=== PATIENT | female | born 1985 | race American Indian/Alaskan Native ===

== ENCOUNTER 2020-07-07 15:48 | Outpatient (CLI) | payer BC, MEDICAID ==
[2020-07-07 17:00] VITALS: BP 120/70
[2020-07-07 18:30] LABS: Hemoglobin 11.5 gm/dl (10.1-14.3); Mean Corpuscular HGB Conc 34 % (30-34); Mean Corpuscular Volume 90 fl (79-97); Platelet Count 140 K/mm3 (140-440); Red Blood Count 3.79 M/mm3 (3.65-5.03); Red Cell Distribution Width 14.1 % (13.2-15.2)
== END 2020-07-07 20:40 | disposition home or self-care (01) ==
LOC: TRG 15:48 → APU 15:54 → TRG 20:40
PROVIDERS: ATTEND Obstetrics & Gynecology
DX: O09.893 Supervision of other high risk pregnancies, third trimester (principal); Z3A.38 38 weeks gestation of pregnancy
CPT/HCPCS: 36415; 59025; 83036; 85027

== ENCOUNTER 2020-07-14 01:33 | Inpatient (IN) | payer BC, MEDICAID ==
[2020-07-14] MEDS ORDERED: LACTATED RINGERS 1,000 ML IV SCH ×2 (02:00→02:30)
[2020-07-14] MEDS ORDERED: MINERAL OIL 30 ML ORAL LIQD PO PRN (02:20)
[2020-07-14] MEDS ORDERED: TERBUTALINE 1 MG/1 ML INJ SUB-Q PRN (02:20)
[2020-07-14] MEDS ORDERED: LIDOCAINE (2%) 20 MG/1 ML VIAL 20 ML MDV INFILTRATI ONE (02:20)
[2020-07-14] MEDS ORDERED: fentaNYL 100 MCG/2 ML INJ IV PRN (02:20)
[2020-07-14] MEDS ORDERED: ONDANSETRON 4 MG/2 ML INJ IV PRN (02:20)
[2020-07-14] MEDS ORDERED: DESMOPRESSIN ACETATE 0.3 MCG in SODIUM CHLORIDE 0.9% 50 ML IV ONE (02:20)
[2020-07-14] MEDS ORDERED: PROMETHAZINE 25 MG TAB PO PRN (02:20)
[2020-07-14] MEDS ORDERED: NALOXONE 0.4 MG/1 ML INJ IV PRN (02:20)
[2020-07-14] MEDS ORDERED: ePHEDrine SULFATE 50 MG/1 ML INJ IV PRN ×2 (02:20→05:15)
[2020-07-14] MEDS ORDERED: ACETAMINOPHEN 500 MG TAB PO PRN (02:31)
[2020-07-14] MEDS ORDERED: DESMOPRESSIN ACETATE IV ONE (02:37)
[2020-07-14] MEDS ORDERED: SODIUM CHLORIDE 0.9% IV ONE (02:37)
[2020-07-14] MEDS ORDERED: OXYTOCIN DRIP 30 UNITS/500 ML BAG IV SCH ×2 (03:00)
[2020-07-14 03:08] LABS: Hematocrit 32.7 % (30.3-42.9); Mean Corpuscular HGB Conc 34 % (30-34); Mean Corpuscular Volume 88 fl (79-97); Platelet Count 138 K/mm3 (140-440); Red Cell Distribution Width 14.3 % (13.2-15.2)
[2020-07-14 03:22] LABS: Bacteria,Urine 1+ /HPF (Negative); Bilirubin,Urine NEG (Negative); Blood,Urine MOD (Negative); Color,Urine Yellow (Yellow); Protein,Urine <15 mg/dL mg/dL (Negative)
--- NOTE | 2020-07-14 03:24 | History and Physical Report ---
History of Present Illness Date of examination: 07/14/20 (Contractions) Date of admission: 07/14/2020 Chief complaint: My contractions are becoming closer together and more painful. History of present illness: contractions that started yesterday and have become stronger. EDC Confirmation: 07/19/2020 Gestational Age: 39.2 wks on admission Past History # 1 Delivery date: 2002 Weeks Gestation: term labor: no Delivery type: Hours of labor: 4 Anesthesia type: none Sex: Female weight: 7#4 Name: Jose Comments: received DDAVP 30 minutes prior to delivery Risk Factors: Smoked Tobacco Use: Never smoker Smokeless Tobacco Use: Never Drug use: no HIV high-risk behavior: no Alcohol use: no Exercise: no Seatbelt use: 100 % Past Medical History: Abnormal Pap Smear Von willebrands dx Past Medical History Abnormal PAP: negative Family Hx: htn - father DVT - mother non-hodgkins lymphoma - maternal aunt Social Hx: no ETOH/Drugs/smoking Trauma Nurse at [place] Infection History Hx of STD: none HIV Risk Eval: no Hepatitis B Risk Eval: low risk Personal hx. of genital herpes: no Partner hx. of genital herpes: no Rash, Viral, or Febrile illness since last LMP? no Genetic History ADVANCED MATERNAL AGE Congenital Heart Defect: Mom: no Dad: no Monserrat Disease: Mom: no Dad: no Thalassemia Mom: no Dad: no Neural Tube Defect Mom: no Dad: no Down's Syndrome Mom: no Dad: no Sohail-Sachs Mom: no Dad: no Sickle Cell Disease/Trait Mom: no Dad: no Hemophilia Mom: no Dad: no Muscular Dystrophy Mom: no Dad: no Cystic Fibrosis Mom: no Dad: no [place] Chorea Mom: no Dad: no Mental Retardation Mom: no Dad: no Fragile X Mom: no Dad: no Other Genetic/Chromosomal Disorder Mom: no Dad: no Child w/other defect Mom: no Dad: no Other: Von Willebrands Enviromental Exposures Xray Exposure: no Medication, drug, or alcohol use since LMP: no Chemical/Other Exposure: no Exposure to Cat Liter: no Hx of Parvovirus (Fifth Disease): no Occupational Exposure to Children: none Current Allergies (reviewed today): No known allergies Past History Past Medical History: hematologic disorders (Von Willebrand disease) Past Surgical History: 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 Family/Genetic History: hypertension, cancer, other (DVT) Social history: no significant social history - Obstetrical History Expected Date of Delivery: 07/19/20 Actual Gestation: 39 Week(s) 2 Day(s) : 4 Para: 1 Hx # Term Pregnancies: 1 Number of Pregnancies: 0 Spontaneous Abortions: 2 Induced : 0 Number of Living Children: 1 Medications and Allergies Allergies Allergy/AdvReac Type Severity Reaction Status Date / Time No Known Allergies Allergy Verified 07/07/20 17:01 Home Medications Medication Instructions Recorded Confirmed Last Taken Type 147/Iron/Folic Acid 1 mg PO DAILY 07/14/20 07/14/20 07/13/20 08:00 History Active Meds: Active Medications Acetaminophen (Acetaminophen 500 Mg Tab) 1,000 mg PO Q6H PRN PRN Reason: Pain, Mild (1-3) Ephedrine Sulfate (Ephedrine Sulfate 50 Mg/1 Ml Inj) 10 mg IV Q2M PRN PRN Reason: Hypotension Fentanyl (Fentanyl 100 Mcg/2 Ml Inj) 100 mcg IV Q2H PRN PRN Reason: Pain,Severe (7-10) LABOR PAIN Oxytocin/Sodium Chloride (Pitocin/Ns 30 Unit/500ml) 30 units in 500 mls @ 2 mls/hr IV TITR MARTHA; Protocol Lactated Ringer's (Lactated Ringers) 1,000 mls @ 125 mls/hr IV DIRECT MARTHA Oxytocin/Sodium Chloride (Pitocin/Ns 30 Unit/500ml) 30 units in 500 mls @ 40 mls/hr IV TITR MARTHA; Protocol Mineral Oil (Mineral Oil 30 Ml Oral Liqd) 30 ml PO QHS PRN PRN Reason: Constipation Naloxone HCl (Naloxone 0.4 Mg/1 Ml Inj) 0.1 mg IV Q2MIN PRN PRN Reason: Res Rate </= 8 or 02 SAT < 92% Ondansetron HCl (Ondansetron 4 Mg/2 Ml Inj) 4 mg IV Q8H PRN PRN Reason: Nausea And Vomiting Promethazine HCl (Promethazine 25 Mg Tab) 25 mg PO Q6H PRN PRN Reason: Nausea And Vomiting Terbutaline Sulfate (Terbutaline 1 Mg/1 Ml Inj) 0.25 mg SUB-Q ONCE PRN PRN Reason: Hyperstimulation/Hypertonicity Review of Systems All systems: negative - Vital Signs Vital signs: Vital Signs Temp Pulse Resp BP Pulse Ox 98.2 F 85 18 129/73 98 07/14/20 02:05 07/14/20 02:05 07/14/20 02:05 07/14/20 02:05 07/14/20 02:05 Temp Pulse Resp BP Pulse Ox 98.2 F 85 18 129/73 98 07/14/20 02:05 07/14/20 02:06 07/14/20 02:05 07/14/20 02:06 07/14/20 02:05 - Physical Exam Breasts: Positive: deferred Cardiovascular: Regular rate Lungs: Positive: Normal air movement Abdomen: Positive: normal appearance, soft Genitourinary (Female): Positive: normal external genitalia, normal perenium, other (Hx of HSV 2) Vulva: both: normal Vagina: Positive: normal moisture Uterus: Positive: normal contour Extremities: Positive: normal - Obstetrical FHR: category 1 Uterine Contraction Monitor Mode: External Cervical Dilatation: 5 Cervical Effacement Percentage: 80 (Intact) station: -3 Uterine Contraction Pattern: Irregular Uterine Tone Measurement Phase: Resting Uterine Contraction Intensity: Moderate Results Result Diagrams: 07/14/20 02:30 Abnormal lab results 07/14/20 Range/Units 02:30 Plt Count 138 L (140-440) K/mm3 All other labs normal. GBS NEGATIVE, O +, ANTIBODY SCREEN NEGATIVE RUBELLA IMMUNE RPR NR HEP B NEGATIVE HIV NEGATIVE Assessment and Plan - Patient Problems (1) HSV-2 infection Current Visit: Yes Status: Acute Plan to address problem: Has been on Valtrex since 35 weeks. No lesions seen on exam this admission. (2) Von Willebrand disease Current Visit: Yes Status: Acute Plan to address problem: DDAVP IV, 0.3mcg/kg, ordered and to be given before procedures (epidural placement and ). Per hematology recommendation (seen as outpatient): 1.DDAVP can be repeated once in 24 hours if any bleeding. 2. May consider infusion if excessive bleeding is noted. No FSE to be placed while in labor. Make pediatric team aware of after delivery (Peds team aware of pt admission: ANGEL Aguirre). (3) with 39 completed weeks gestation Current Visit: Yes Status: Acute Plan to address problem: Admit to labor and delivery. Initiate IV and obtain admission labs. IV bolus for epidural placement.
--- NOTE | 2020-07-14 04:33 | Event Note ---
Date: 07/14/20 (SROM clear fluid, variables) SROM clear fluid at 0412 am. Contractions every minute with variable decelerations down into the 70's. heart rate recovers to 140's. Pt given dose of terb and repositioned in bed. Cervical exam 5.5/80/-2. Dr. Brooks made aware of change in patient condition.
[2020-07-14] MEDS ORDERED: NALOXONE 2 MG/2 ML INJ IV PRN (05:15)
--- NOTE | 2020-07-14 05:17 | Anesthesia Consultation ---
Anesthesia Consult and Med Hx Date of service: 07/14/20 - Airway Anesthetic Teeth Evaluation: Good ROM Head & Neck: Adequate Mental/Hyoid Distance: Adequate Mallampati Class: Class II Intubation Access Assessment: Probably Good - Pulmonary Exam CTA: Yes - Cardiac Exam Cardiac Exam: RRR - Pre-Operative Health Status ASA Pre-Surgery Classification: ASA3 Proposed Anesthetic Plan: Epidural (VWF I) - Pulmonary Hx Asthma: No COPD: No Hx Pneumonia: No - Cardiovascular System Hx Hypertension: No - Central Nervous System Hx Seizures: No Hx Psychiatric Problems: No - Endocrine Hx Renal Disease: No Hx End Stage Renal Disease: No Hx Hypothyroidism: No Hx Hyperthyroidism: No - Hematic Hx Anemia: Yes Hx Sickle Cell Disease: No - Other Systems Hx Alcohol Use: No
--- NOTE | 2020-07-14 05:38 | Progress Note ---
Labor Epidural - Labor Epidural Start Time: 05:27 Stop Time: 05:31 Performed by:: ADRIANNA ALONSO Procedure: Patient is requesting epidural for labor pain. H&P, and labs reviewed. Procedure explained, questions answered, consent obtained. Patient in sitting position with blood pressure cuff and pulse ox on and working. Timeout performed immediately before start of procedure. Sterile chlorahexadine 0.5% prep/drape. 3 mL 1% lidocaine skin wheal at L[3]-L[4]. 18-gauge Tuohy epidural needle advanced to [id number] with saline at 8 cm. Epidural dexmedetomidine [30] mcg administered. Epidural catheter advanced to 13 cm, negative aspiration for blood and csf, negative test dose 3 ml 1.5% lidocaine with epinephrine. Sterile steri-strips and tegaderm applied, followed by tape reinforcement. Patient tolerated procedure well.
--- NOTE | 2020-07-14 05:51 | Progress Note ---
Assessment and Plan A: 35 y.o. @ 39.2 wks in active labor. S/p DDAVP infusion. Epidural placed. feeling rectal pressure, cervical exam /-1. P: Continue with expected management of labor. Anticipate . - Patient Problems (1) HSV-2 infection Current Visit: Yes Status: Acute (2) Von Willebrand disease Current Visit: Yes Status: Acute (3) with 39 completed weeks gestation Current Visit: Yes Status: Acute Subjective - Subjective Date of service: 07/14/20 (Pt states that she is feeling pressure) Principal diagnosis: IUP @ 39.2 wks, active labor. Hx of Von Willebrand disease. Patient reports: movement normal, other (Feeling rectal pressure) Objective - Vital Signs Vital Signs: Vital Signs - 12hr 07/14/20 07/14/20 07/14/20 02:05 02:06 04:03 Temperature 98.2 F Pulse Rate 85 85 Respiratory 18 20 Rate Blood Pressure 129/73 Blood Pressure 129/73 [Left] O2 Sat by Pulse 98 Oximetry 07/14/20 07/14/20 07/14/20 05:23 05:26 05:27 Temperature Pulse Rate 99 H 100 H 98 H Respiratory Rate Blood Pressure 160/72 149/65 Blood Pressure [Left] O2 Sat by Pulse 98 Oximetry 07/14/20 07/14/20 07/14/20 05:28 05:29 05:31 Temperature Pulse Rate 106 H 97 H 112 H Respiratory Rate Blood Pressure 137/75 138/70 Blood Pressure [Left] O2 Sat by Pulse 98 Oximetry 07/14/20 07/14/20 07/14/20 05:33 05:35 05:37 Temperature Pulse Rate 113 H 108 H 108 H Respiratory Rate Blood Pressure 136/71 135/58 142/66 Blood Pressure [Left] O2 Sat by Pulse 99 Oximetry 07/14/20 07/14/20 07/14/20 05:38 05:39 05:41 Temperature Pulse Rate 101 H 113 H 96 H Respiratory Rate Blood Pressure 134/61 120/59 Blood Pressure [Left] O2 Sat by Pulse 99 Oximetry 07/14/20 05:43 Temperature Pulse Rate 100 H Respiratory Rate Blood Pressure 122/56 Blood Pressure [Left] O2 Sat by Pulse 99 Oximetry - Exam Narrative Exam: Epidural placement completed. Pt is now comfortable with epidural. Abdomen: Present: normal appearance Vulva: both: normal FHR: category 2 (Minimal variability noted. ) Cervical Dilatation: 8 Cervical Effacement Percentage: 90 station: -1 Uterine Contraction Pattern: Regular Uterine Tone Measurement Phase: Resting Uterine Contraction Intensity: Moderate - Labs Labs: Abnormal Labs 07/14/20 07/14/20 02:30 02:30 Plt Count 138 L Urine WBC (Auto) 8.0 H U Epithel Cells (Auto) 14.0 H Laboratory Results - last 24 hr 07/14/20 07/14/20 07/14/20 02:30 02:30 02:30 WBC 8.9 RBC 3.70 Hgb 11.0 Hct 32.7 MCV 88 MCH 30 MCHC 34 RDW 14.3 Plt Count 138 L Urine Color Yellow Urine Turbidity Slightly-cloudy Urine pH 7.0 Ur Specific [place] 1.006 Urine Protein <15 mg/dl Urine Glucose (UA) Neg Urine Ketones Neg Urine Blood Mod Urine Nitrite Neg Urine Bilirubin Neg Urine Urobilinogen 2.0 Ur Leukocyte Esterase Mod Urine WBC (Auto) 8.0 H Urine RBC (Auto) 3.0 U Epithel Cells (Auto) 14.0 H Urine Bacteria (Auto) 1+ Urine Yeast (Budding) 1+ Syphilis IgG Antibody Nonreactive Blood Type Antibody Screen 07/14/20 02:30 WBC RBC Hgb Hct MCV MCH MCHC RDW Plt Count Urine Color Urine Turbidity Urine pH Ur Specific [place] Urine Protein Urine Glucose (UA) Urine Ketones Urine Blood Urine Nitrite Urine Bilirubin Urine Urobilinogen Ur Leukocyte Esterase Urine WBC (Auto) Urine RBC (Auto) U Epithel Cells (Auto) Urine Bacteria (Auto) Urine Yeast (Budding) Syphilis IgG Antibody Blood Type O POSITIVE Antibody Screen Negative
[2020-07-14] MEDS ORDERED: fentaNYL-BUPIV 2 MCG/ML-0.125% 200 MCG/100 ML BAG EPIDURAL SCH (06:00)
--- NOTE | 2020-07-14 06:43 | Progress Note ---
Assessment and Plan Pt comfortable with epidural with exception of pressure with ctx. Anticipate delivery. Subjective - Subjective Date of service: 07/14/20 (pt c/o bloody show) Principal diagnosis: IUP @ 39.2 wks, active labor. Hx of Von Willebrand disease. Patient reports: movement normal, other (Feeling rectal pressure) Objective - Vital Signs Vital Signs: Vital Signs - 12hr 07/14/20 07/14/20 07/14/20 02:05 02:06 04:03 Temperature 98.2 F Pulse Rate 85 85 Respiratory 18 20 Rate Blood Pressure 129/73 Blood Pressure 129/73 [Left] O2 Sat by Pulse 98 Oximetry 07/14/20 07/14/20 07/14/20 05:23 05:26 05:27 Temperature Pulse Rate 99 H 100 H 98 H Respiratory Rate Blood Pressure 160/72 149/65 Blood Pressure [Left] O2 Sat by Pulse 98 Oximetry 07/14/20 07/14/20 07/14/20 05:28 05:29 05:31 Temperature Pulse Rate 106 H 97 H 112 H Respiratory Rate Blood Pressure 137/75 138/70 Blood Pressure [Left] O2 Sat by Pulse 98 Oximetry 07/14/20 07/14/20 07/14/20 05:33 05:35 05:37 Temperature Pulse Rate 113 H 108 H 108 H Respiratory Rate Blood Pressure 136/71 135/58 142/66 Blood Pressure [Left] O2 Sat by Pulse 99 Oximetry 07/14/20 07/14/20 07/14/20 05:38 05:39 05:41 Temperature Pulse Rate 101 H 113 H 96 H Respiratory Rate Blood Pressure 134/61 120/59 Blood Pressure [Left] O2 Sat by Pulse 99 Oximetry 07/14/20 07/14/20 07/14/20 05:43 05:48 05:53 Temperature Pulse Rate 100 H 102 H 97 H Respiratory Rate Blood Pressure 122/56 Blood Pressure [Left] O2 Sat by Pulse 99 100 99 Oximetry 07/14/20 07/14/20 07/14/20 05:58 06:03 06:08 Temperature Pulse Rate 120 H 101 H 103 H Respiratory Rate Blood Pressure Blood Pressure [Left] O2 Sat by Pulse 99 100 100 Oximetry 07/14/20 07/14/20 07/14/20 06:13 06:14 06:18 Temperature Pulse Rate 98 H 100 H 98 H Respiratory Rate Blood Pressure 107/49 Blood Pressure [Left] O2 Sat by Pulse 100 100 Oximetry 07/14/20 07/14/20 07/14/20 06:23 06:28 06:33 Temperature Pulse Rate 97 H 118 H 94 H Respiratory Rate Blood Pressure Blood Pressure [Left] O2 Sat by Pulse 100 100 100 Oximetry 07/14/20 06:38 Temperature Pulse Rate 117 H Respiratory Rate Blood Pressure Blood Pressure [Left] O2 Sat by Pulse 100 Oximetry - Exam Breasts: deferred Cardiovascular: Regular rate Abdomen: Present: normal appearance, soft. Absent: distention, tenderness Uterus: Present: normal FHR: auscultation normal, category 1 Uterine Contraction Monitor Mode: External Cervical Dilatation: 9.5 (bloody show) Cervical Effacement Percentage: 100 station: 0 Uterine Contraction Pattern: Regular Uterine Tone Measurement Phase: Resting Uterine Contraction Intensity: Moderate Extremities: normal Deep Tendon Reflex Grade: Normal +2 - Labs Labs: Abnormal Labs 07/14/20 07/14/20 02:30 02:30 Plt Count 138 L Urine WBC (Auto) 8.0 H U Epithel Cells (Auto) 14.0 H Laboratory Results - last 24 hr 07/14/20 07/14/20 07/14/20 02:30 02:30 02:30 WBC 8.9 RBC 3.70 Hgb 11.0 Hct 32.7 MCV 88 MCH 30 MCHC 34 RDW 14.3 Plt Count 138 L Urine Color Yellow Urine Turbidity Slightly-cloudy Urine pH 7.0 Ur Specific [place] 1.006 Urine Protein <15 mg/dl Urine Glucose (UA) Neg Urine Ketones Neg Urine Blood Mod Urine Nitrite Neg Urine Bilirubin Neg Urine Urobilinogen 2.0 Ur Leukocyte Esterase Mod Urine WBC (Auto) 8.0 H Urine RBC (Auto) 3.0 U Epithel Cells (Auto) 14.0 H Urine Bacteria (Auto) 1+ Urine Yeast (Budding) 1+ Syphilis IgG Antibody Nonreactive Blood Type Antibody Screen 07/14/20 02:30 WBC RBC Hgb Hct MCV MCH MCHC RDW Plt Count Urine Color Urine Turbidity Urine pH Ur Specific [place] Urine Protein Urine Glucose (UA) Urine Ketones Urine Blood Urine Nitrite Urine Bilirubin Urine Urobilinogen Ur Leukocyte Esterase Urine WBC (Auto) Urine RBC (Auto) U Epithel Cells (Auto) Urine Bacteria (Auto) Urine Yeast (Budding) Syphilis IgG Antibody Blood Type O POSITIVE Antibody Screen Negative
[2020-07-14] MEDS ORDERED: miSOPROStol 100 MCG TAB PR PRN (07:54)
[2020-07-14] MEDS ORDERED: IBUPROFEN 600 MG TAB PO SCH (08:00)
[2020-07-14] MEDS ORDERED: ACETAMINOPHEN 325 MG TAB PO PRN (08:00)
--- NOTE | 2020-07-14 08:01 | Procedure Note ---
OB Delivery Note - Delivery Date of Delivery: 07/14/20 Traveling Buyer: CONNOR NEW Estimated blood loss: 500cc - Vaginal Delivery presentation: vertex Delivery position: OA Intrapartum events: other(please specify) (von willebrands DZ Mother) Delivery induction: none Delivery monitor: external FHT, external uterine Route of delivery: Delivery placenta: spontaneous Delivery cord: 3 umbilical vessels Episiotomy: none Delivery laceration: none Anesthesia: epidural Delivery comments: RT & SYLVIA present; Counts correct X 2 live born male over intact perineum, Baby to mom's abdomen skin to skin. Cord blood obtained. Placenta and membrane del complete and intact, 3 vessel cord. Pit IVFs. Several large clots removed after placenta, FF @ umb Lochia small. 8/9, EBL 500, Wgt 8-5. Mom and baby remain LDR stable. - A at 1 minute: 8 at 5 minutes: 9 Infant Gender: Male (Millicent wgt 8-5)
[2020-07-14] MEDS ORDERED: METHYLERGONOVINE MALEATE 0.2 MG/ML VIAL IM PRN (08:30)
[2020-07-14] MEDS ORDERED: WITCH HAZEL/ GLYCERIN PAD TP PRN (08:30)
[2020-07-14] MEDS ORDERED: diphenhydrAMINE 25 MG CAP PO PRN (08:30)
[2020-07-14] MEDS ORDERED: LANOLIN/ZINC/DIMETHICONE (LANSINOH) 7 GM TP PRN (08:30)
[2020-07-14] MEDS: DOCUSATE SODIUM 100 MG CAP PO SCH ×3 (10:57→23:18)
[2020-07-14] MEDS: PRENATAL VIT27-FE FUMARATE-FOLIC ACID VIT TAB PO SCH (10:57)
[2020-07-14] MEDS: IBUPROFEN 800 MG TAB PO SCH ×2 (10:57→23:15)
[2020-07-14 19:50] LABS: Hematocrit 29.7 % (30.3-42.9); Hemoglobin 9.8 gm/dl (10.1-14.3)
[2020-07-14] MEDS ORDERED: MAGNESIUM HYDROXIDE (MOM) ORAL LIQD UDC PO PRN (22:00)
[2020-07-15] MEDS ORDERED: MEASLES, MUMPS & RUBELLA 12,500 UNIT/0.5 ML VACCINE SUB-Q ONE (07:54)
[2020-07-15] MEDS ORDERED: DIPHtheria,PERTUSSIS(ACELL),TETANUS VACCINE/PF 0.5 ML VIAL IM ONE (07:57)
--- NOTE | 2020-07-15 08:11 | Discharge Summary ---
Providers - Providers Date of Admission: 07/14/20 02:21 Date of discharge: 07/15/20 (desires d/c home) Attending physician: CHAD DEJESUS Primary care physician: CHAD DEJESUS Hospitalization Reason for admission: Labor Condition: Good Pertinent studies: H&H 9.8/29.7, asymptomatic anemia from acute blood loss Procedures: Hospital course: uncomplicated and course. Disposition: - TO HOME OR SELFCARE - Discharge Diagnoses (1) Normal spontaneous vaginal delivery Status: Acute (2) Von Willebrand disease Status: Acute Core Measure Documentation - Palliative Care Palliative Care/ Comfort Measures: Not Applicable - Core Measures Any of the following diagnoses?: none Exam - Constitutional Vitals: Temp Pulse Resp BP Pulse Ox 98.0 F 101 H 18 129/63 98 07/15/20 00:34 07/15/20 00:34 07/15/20 00:34 07/15/20 00:34 07/15/20 00:34 General appearance: Present: no acute distress, well-nourished - EENT Eyes: Present: PERRL ENT: hearing intact, clear oral mucosa - Neck Neck: Present: supple, normal ROM - Respiratory Respiratory effort: normal Respiratory: bilateral: CTA - Cardiovascular Rhythm: regular - Extremities Extremities: No edema - Abdominal General gastrointestinal: Present: soft, non-tender, non-distended, normal bowel sounds Female genitourinary: Present: normal - Integumentary Integumentary: Present: clear, warm, dry - Musculoskeletal Musculoskeletal: gait normal, strength equal bilaterally - Psychiatric Psychiatric: appropriate mood/affect, intact judgment & insight - Neurologic Neurologic: CNII-XII intact, moves all extremities - Additional findings Additional findings: breast and bottle feeding, lochia scant, fundus firm Plan Activity: no restrictions Diet: regular Care Plan Goals: Call office to schedule appointment Call your doctor immediately for: * Fever > 100.5 * Heavy vaginal bleeding ( >1 pad per hour) * Severe persistent headache * Shortness of breath * Reddened, hot, painful area to leg or breast * Follow up with: CHAD DEJESUS MD [Primary Care Provider] - 7 Days (Congratulations! Please call [phone] to schedule your son's circumcision in 1 week and your visit in 4 weeks. Bring EMLA cream to your son's appointment and wait for further teaching. Call for any questions or concerns.) Forms: [facility] Discharge Summary Prescriptions: Lidocain2.5%/Prilocai2.5% [Emla] 5 gm TP ONCE PRN #1 tube PRN Reason: Pain Ibuprofen [Motrin 800 MG tab] 800 mg PO Q8HR PRN #30 tablet PRN Reason: Pain
--- NOTE | 2020-07-15 11:50 | Post Anesthesia Evaluation ---
- Post Anesthesia Evaluation Patient Participated: Yes Airway Patent: Yes Stable Respiratory Function: Yes Nausea/Vomiting: No Temp > 96.8F: Yes Pain Manageable: Yes Adequeate Hydration: Yes Anesthesia Complications: No Block Receding Appropriately: Yes Patient on Ventilator: No
[2020-07-15] MEDS: PRENATAL VIT27-FE FUMARATE-FOLIC ACID VIT TAB PO SCH (12:00)
[2020-07-15] MEDS: IBUPROFEN 800 MG TAB PO SCH ×2 (12:00→23:55)
[2020-07-15] MEDS: DOCUSATE SODIUM 100 MG CAP PO SCH ×2 (12:00→22:00)
[2020-07-16 07:46] VITALS: BP 120/66
== END 2020-07-16 10:45 | disposition home or self-care (01) | DRG 806 ==
LOC: TRG 01:33 → APU 01:35 → LD 02:21 → TRG 02:21 → OB 10:03
PROVIDERS: ADMIT Obstetrics & Gynecology; ATTEND Obstetrics & Gynecology
PROC: 10E0XZZ Delivery of Products of Conception, External Approach (ICD-10-PCS; principal; 2020-07-14)
PROC: 3E0R3BZ Introduction of Anesthetic Agent into Spinal Canal, Percutaneous Approach (ICD-10-PCS; 2020-07-14)
PROC: 00HU33Z Insertion of Infusion Device into Spinal Canal, Percutaneous Approach (ICD-10-PCS; 2020-07-14)
PROC: 3E0234Z Introduction of Serum, Toxoid and Vaccine into Muscle, Percutaneous Approach (ICD-10-PCS; 2020-07-15)
PROC: 3E0134Z Introduction of Serum, Toxoid and Vaccine into Subcutaneous Tissue, Percutaneous Approach (ICD-10-PCS; 2020-07-15)
DX: O99.12 Other diseases of the blood and blood-forming organs and certain disorders involving the immune mechanism complicating childbirth (principal); D68.0 Von Willebrand disease; Z37.0 Single live birth; O98.52 Other viral diseases complicating childbirth; D62 Acute posthemorrhagic anemia; O99.03 Anemia complicating the puerperium; B00.9 Herpesviral infection, unspecified; Z3A.39 39 weeks gestation of pregnancy; Z80.9 Family history of malignant neoplasm, unspecified; Z84.89 Family history of other specified conditions; Z82.49 Family history of ischemic heart disease and other diseases of the circulatory system; Z23 Encounter for immunization
CPT/HCPCS: 36415; 81001; 85014; 85018; 85027; 86592; 86850; 86900; 86901; 88307; G0378; J2597; J3010; J3105; J7120; U0003